=== PATIENT | female | born 1975 | race Caucasian/White ===

== ENCOUNTER 2021-08-25 09:32 | Emergency (ER) | payer OTHER ==
[~2021-08-25] VITALS: Ht 162.6 cm; Wt 93.4 kg
[~2021-08-25 09:32] MED LIST: Acetaminophen/Cod #3 Tablet PO; Mylicon 125MG PO
[2021-08-25] MEDS ORDERED: COZAAR50 MG PO (09:40)
[2021-08-25] MEDS ORDERED: DIURETIC SOFTGE50 MG PO (09:41)
[2021-08-25] MEDS ORDERED: UTIX PO (14:05)
[2021-08-25] MEDS ORDERED: DICLOFENAC POTA50 MG PO (14:05)
== END 2021-08-25 14:51 ==
LOC: ER 09:32
DX: B34.8 Other viral infections of unspecified site (principal); M62.838 Other muscle spasm